=== PATIENT | female | born 1980 | race Caucasian/White ===

== ENCOUNTER → 2022-05-29 15:25 | Outpatient (CLI) | payer OTHER, SELFPAY ==
--- NOTE | ~2022-05-29 | MR_ITS ---
EXAMINATION: MR ankle LT wo con DATE: 05/29/2022 16:10 INDICATION: Laceration of the lateral left ankle TECHNIQUE: Magnetic resonance imaging (MRI) of the left ankle was performed without intravenous contr ast. Sequences included sagittal, coronal, and axial proton-density weighted fast spin echo without a nd with fat saturation. COMPARISON: None. FINDINGS: Medial ankle ligaments: Deep and superficial deltoid ligaments as well as the spring ligament are normal. Lateral ankle ligaments: The anterior and posterior inferior tibiofibular ligaments are normal. The anterior talofibular, calc aneofibular and posterior talofibular ligaments are normal. Tendons: Achilles tendon is normal. Small amount of fluid consistent with mild tenosynovitis extending along t he peroneal tendon sheath. There is mild tendinopathy and longitudinal split tearing distal to the re tromalleolar groove of both the peroneus longus and brevis tendons. The tibialis anterior and extenso r hallucis longus and extensor digitorum longus tendons are normal. The flexor digitorum longus and f lexor hallucis longus tendons are normal. Additional mild tenosynovitis in the otherwise normal tibia lis posterior tendon. Plantar fascia: Plantar aponeurosis is normal. Bones/other: Bone alignment is normal. Normal marrow signal throughout with no fracture, reactive edema or other p athologic marrow replacing process. Mild osteoarthritis at the tibiotalar, talonavicular and at the s econd and third tarsal metatarsal joints. Suggestion of a shallow skin laceration at the posterior me dial ankle situated medial to the Achilles tendon. There is no abscess or peritendinitis. Fluid: Physiologic amount fluid in the joint spaces. Subcutaneous edema extending from medially to laterally and the posterior ankle and hindfoot.. IMPRESSION: 1. Suggestion of a shallow skin laceration at the posterior medial aspect of the ankle with some unde rlying subcutaneous edema. No abscess. 2. Mild peroneal tenosynovitis with mild tendinopathy and longitudinal split tears of the peroneus lo ngus and brevis tendons. 3. Mild tenosynovitis along the normal tibialis posterior tendon. 4. 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 Reviewed, dictated and finalized at location A. [facility] IMPRESSION: 1. Suggestion of a shallow skin laceration at the posterior medial aspect of th e ankle with some underlying subcutaneous edema. No abscess. 2. Mild peroneal tenosynovitis with mild tendinopathy and longitudinal split te ars of the peroneus longus and brevis tendons. 3. Mild tenosynovitis along the normal tibialis posterior tendon. 4. 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
== END ==
PROVIDERS: PCP Family Medicine; Visit Provider Orthopaedic Surgery
DX: S91.012A Laceration without foreign body, left ankle, initial encounter (principal); R60.9 Edema, unspecified; M65.9 Synovitis and tenosynovitis, unspecified; M15.9 Polyosteoarthritis, unspecified; T14.90XA Injury, unspecified, initial encounter
CPT/HCPCS: 73721